=== PATIENT | female | born 1945 | race Caucasian/White ===

== ENCOUNTER 2022-01-25 17:07 | Emergency (ER) | payer MEDICARE ==
[~2022-01-25] VITALS: Ht 165.1 cm; Wt 54.4 kg
[2022-01-25 17:14] VITALS: BP 149/103
[2022-01-25] MEDS ORDERED: HYDROCODONE/APAP 7.5/325MG 1 EACH TABLET PO ONE (18:00)
[2022-01-25] MEDS ORDERED: LIDOCAINE 2% 20 ML MDV TP ONE (18:00)
[2022-01-25] MEDS ORDERED: TDAP [DIPH/PERTUSSIS/TET] 0.5 ML VIAL IM ONE ×2 (18:00→18:43)
[2022-01-25] MEDS ORDERED: LIDOCAINE 1% INJ 50 ML MDV IJ ONE (18:42)
[2022-01-25] MEDS ORDERED: HYDR-3976 PO (18:44)
[2022-01-25] MEDS ORDERED: IBUP-1955 PO (18:44)
[2022-01-25] MEDS ORDERED: CEPH500T PO (18:44)
[2022-01-25] MEDS ORDERED: HYDROCODONE/APAP 5/325MG TABLET ONE (18:47)
[2022-01-25] MEDS ORDERED: CEFAZOLIN 1 GM VIAL IM ONE (19:00)
[2022-01-25] MEDS ORDERED: HYDROCODONE/APAP 5/325MG TABLET PO ONE (19:00)
== END 2022-01-25 19:39 | disposition home or self-care (01) ==
LOC: ER 17:18
DX: S68.110A Complete traumatic metacarpophalangeal amputation of right index finger, initial encounter (principal); Z88.8 Allergy status to other drugs, medicaments and biological substances; Z79.899 Other long term (current) drug therapy; W23.0XXA Caught, crushed, jammed, or pinched between moving objects, initial encounter; Y93.89 Activity, other specified; Y92.89 Other specified places as the place of occurrence of the external cause; Y99.8 Other external cause status
CPT/HCPCS: 64450; 99284; 96372; 90471; 90715; 73140; J0690; J3490; A6403